=== PATIENT | female | born 1975 | race Hispanic/Latino ===

== ENCOUNTER 2021-05-14 10:03 | Outpatient (CLI) | payer SELFPAY ==
[2021-05-14 21:11] LABS: SARS-CoV-2 PCR by NAA Not Detected (NotDetected)
== END 2021-05-14 10:04 | disposition home or self-care (01) ==
LOC: CSHLAB 10:03
PROVIDERS: ATTEND Obstetrics & Gynecology
DX: Z01.812 Encounter for preprocedural laboratory examination (principal); Z20.822 Contact with and (suspected) exposure to COVID-19
CPT/HCPCS: U0003; U0005

== ENCOUNTER 2021-05-19 11:18 | Day surgery (SDC) | payer SELFPAY ==
[2021-05-17 13:50] VITALS: BMI 56.5
[2021-05-19] MEDS ORDERED: Lidocaine 1% MPF 2 ML VIAL ONE (11:47)
[2021-05-19] MEDS ORDERED: Bupivacaine PF 0.5% 30 ML VIAL ONE (13:18)
[2021-05-19] MEDS ORDERED: Ferric Subsulfate (ASTRINGYN) 8 GM VIAL ONE (13:19)
[2021-05-19] MEDS ORDERED: Midazolam HCl 2 mg/2 ml Vial ONE (14:08)
[2021-05-19] MEDS ORDERED: PROPOFOL 20 ML ONE (14:26)
[2021-05-19] MEDS ORDERED: Promethazine HCl 25 MG/ML VIAL ONE (15:30)
== END 2021-05-19 16:15 | disposition home or self-care (01) ==
LOC: CSHSDC 11:18
PROVIDERS: ATTEND Obstetrics & Gynecology
PROC: 0UDB7ZX Extraction of Endometrium, Via Natural or Artificial Opening, Diagnostic (ICD-10-PCS; principal; 2021-05-19)
PROC: 0HB8XZZ Excision of Buttock Skin, External Approach (ICD-10-PCS; principal; 2021-05-19)
PROC: 0UBMXZX Excision of Vulva, External Approach, Diagnostic (ICD-10-PCS; principal; 2021-05-19)
DX: Q82.5 Congenital non-neoplastic nevus (principal); A63.0 Anogenital (venereal) warts; N93.9 Abnormal uterine and vaginal bleeding, unspecified; I10 Essential (primary) hypertension; M16.0 Bilateral primary osteoarthritis of hip; G47.33 Obstructive sleep apnea (adult) (pediatric); F10.20 Alcohol dependence, uncomplicated; Q60.0 Renal agenesis, unilateral; G62.9 Polyneuropathy, unspecified; E66.01 Morbid (severe) obesity due to excess calories; Z68.43 Body mass index [BMI] 50.0-59.9, adult; Z90.49 Acquired absence of other specified parts of digestive tract; Z21 Asymptomatic human immunodeficiency virus [HIV] infection status; Z87.891 Personal history of nicotine dependence; Z79.82 Long term (current) use of aspirin; Z79.899 Other long term (current) drug therapy; Z88.8 Allergy status to other drugs, medicaments and biological substances; Z91.013 Allergy to seafood
CPT/HCPCS: 88305; J2250; J2550; J2704; S0020

== ENCOUNTER 2022-09-16 08:45 | Day surgery (SDC) | payer OTHER ==
[2022-09-14 15:22] VITALS: BMI 56.7
[2022-09-16] MEDS ORDERED: Acetaminophen 500 MG TAB ONE (11:09)
[2022-09-16] MEDS ORDERED: Scopolamine 1.5 mg/72 hour Patch ONE (11:09)
[2022-09-16] MEDS ORDERED: Bupivacaine PF 0.5% 30 ML VIAL ONE (11:19)
[2022-09-16] MEDS ORDERED: Ondansetron PF 4 MG/2 ML Vial ONE (11:21)
[2022-09-16] MEDS ORDERED: Dexamethasone 4 mg/ml Vial ONE (11:21)
[2022-09-16] MEDS ORDERED: Lidocaine 1% PF 5 ML VIAL ONE ×2 (11:21→12:55)
[2022-09-16] MEDS ORDERED: Fentanyl 100 MCG/2 ML VIAL ONE (11:21)
[2022-09-16] MEDS ORDERED: PROPOFOL 20 ML ONE (11:21)
[2022-09-16] MEDS ORDERED: Rocuronium Bromide 10 MG/ML (10ML VIAL) ONE (11:21)
[2022-09-16] MEDS ORDERED: CEFAZOLIN 2 GM VIAL ONE (11:36)
[2022-09-16] MEDS ORDERED: SUGAMMADEX SODIUM 200 MG/2 ML VIAL ONE (12:54)
[2022-09-16] MEDS ORDERED: Phenylephrine 10 MG/ML VIAL ONE (12:55)
[2022-09-16] MEDS ORDERED: oxyCODONE 5 MG TAB ONE (13:47)
== END 2022-09-16 14:45 | disposition home or self-care (01) ==
LOC: CSHSDC 08:45
PROVIDERS: ATTEND Podiatrist Foot & Ankle Surgery
PROC: 0QBM0ZZ Excision of Left Tarsal, Open Approach (ICD-10-PCS; principal; 2022-09-16)
DX: M77.32 Calcaneal spur, left foot (principal); M25.775 Osteophyte, left foot; M76.62 Achilles tendinitis, left leg; I11.0 Hypertensive heart disease with heart failure; I50.32 Chronic diastolic (congestive) heart failure; Z21 Asymptomatic human immunodeficiency virus [HIV] infection status; R00.0 Tachycardia, unspecified; R00.2 Palpitations; E66.01 Morbid (severe) obesity due to excess calories; Z68.43 Body mass index [BMI] 50.0-59.9, adult; E11.69 Type 2 diabetes mellitus with other specified complication; E78.5 Hyperlipidemia, unspecified; D64.9 Anemia, unspecified; F32.A Depression, unspecified; F41.9 Anxiety disorder, unspecified; Z79.899 Other long term (current) drug therapy; Z79.84 Long term (current) use of oral hypoglycemic drugs; Z87.891 Personal history of nicotine dependence; G47.33 Obstructive sleep apnea (adult) (pediatric); Z91.013 Allergy to seafood; Z88.8 Allergy status to other drugs, medicaments and biological substances
CPT/HCPCS: 36416; C1713; J1100; J2370; J2405; J2704; J3010; S0020

== ENCOUNTER 2023-01-06 11:35 | Day surgery (SDC) | payer OTHER ==
[2023-01-03 11:46] VITALS: BMI 58.1
[2023-01-06] MEDS ORDERED: fentaNYL 50 mcg/mL 1 mL Vial ONE ×2 (13:21→15:14)
[2023-01-06] MEDS ORDERED: Ketorolac Tromethamine 30 MG/ML VIAL ONE (13:21)
[2023-01-06] MEDS ORDERED: PROPOFOL 20 ML ONE (13:21)
[2023-01-06] MEDS ORDERED: Midazolam HCl 2 mg/2 ml Vial ONE (13:21)
[2023-01-06] MEDS ORDERED: Dexamethasone 20 MG/5 ML VIAL ONE (13:21)
[2023-01-06] MEDS ORDERED: Ondansetron PF 4 MG/2 ML Vial ONE (13:21)
[2023-01-06] MEDS ORDERED: Rocuronium Bromide 10 MG/ML (10ML VIAL) ONE (13:21)
[2023-01-06] MEDS ORDERED: Scopolamine 1.5 mg/72 hour Patch ONE (13:33)
[2023-01-06] MEDS ORDERED: CEFAZOLIN 2 GM VIAL ONE (13:40)
[2023-01-06] MEDS ORDERED: Phenylephrine 40 MG/NS 250 ML 250 ML ONE (13:41)
[2023-01-06] MEDS ORDERED: SUGAMMADEX SODIUM 200 MG/2 ML VIAL ONE (14:37)
[2023-01-06] MEDS ORDERED: Bupivacaine PF 0.5% 30 ML VIAL ONE (14:48)
[2023-01-06] MEDS ORDERED: Neomycin-Polymyxin 1 ML AMP ONE (14:48)
[2023-01-06] MEDS ORDERED: HYDROcodone/Acetaminophen 5/325 mg Tablet ONE (15:46)
== END 2023-01-06 16:15 | disposition home or self-care (01) ==
LOC: CSHSDC 11:35
PROVIDERS: ATTEND Podiatrist Foot & Ankle Surgery
PROC: 0LQP0ZZ Repair Left Lower Leg Tendon, Open Approach (ICD-10-PCS; principal; 2023-01-06)
DX: S86.012A Strain of left Achilles tendon, initial encounter (principal); I10 Essential (primary) hypertension; E78.5 Hyperlipidemia, unspecified; Z86.718 Personal history of other venous thrombosis and embolism; Z91.013 Allergy to seafood; Z79.01 Long term (current) use of anticoagulants; Z79.84 Long term (current) use of oral hypoglycemic drugs; Z79.899 Other long term (current) drug therapy; Z90.49 Acquired absence of other specified parts of digestive tract; Z90.710 Acquired absence of both cervix and uterus; Z88.8 Allergy status to other drugs, medicaments and biological substances; X58.XXXA Exposure to other specified factors, initial encounter
CPT/HCPCS: J1100; J1885; J2250; J2405; J2704; J3010; S0020